=== PATIENT | female | born 1970 | race African-American/Black ===

== ENCOUNTER 2016-12-17 16:02 | Emergency (ER) | payer SELFPAY ==
[2016-12-17 16:44] LABS: ALT (SGPT) 18 U/L (0-55); AST (SGOT) 22 U/L (5-34); Alkaline Phosphatase 63 U/L (40-150); Anion Gap 16 mmol/L (10-20); BUN (Urea Nitrogen) 9 mg/dL (7.0-18.7); Bilirubin, Total 0.2 mg/dL (0.2-1.2); Calc. Creatinine Clearance 0 mL/min (70-130); Carbon Dioxide 19 mmol/L (22-29); Chloride 109 mmol/L (98-107); Estimated GFR-MDRD 89; Globulin 4.1 g/dL (2.4-3.5); Protein, Total 8.4 g/dL (6.0-8.3)
[2016-12-17 16:45] LABS: Troponin I Less than 0.010 ng/mL (< 0.028)
[2016-12-17 17:00] LABS: Band 2 % (5-11); Hematocrit 39.6 % (36.0-47.0); Mean Platelet Volume 6.1 fL (7.4-10.4); Neutrophil 25 % (42-75); White Blood Cell (WBC) Count 4.2 thou/uL (4.8-10.8)
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
--- NOTE | 2016-12-17 21:13 | RAD ---
PORTABLE CHEST: Date: 12-17-16 An AP portable film at 1622 is compared with a 03-21-16 study. FINDINGS: The heart remains normal in size and the lungs are clear. There is no sign of vascular congestion, edema, or pleural effusion. There is no evidence of pneumothorax, pneumonia, or other acute pulmona ry findings. The mediastinum appears normal. The bony structures appear normal. IMPRESSION: No acute thoracic findings. POS: HOME
== END 2016-12-17 17:19 | disposition home or self-care (01) ==
LOC: BURERS 16:02
DX: R07.89 Other chest pain (principal); I10 Essential (primary) hypertension; J42 Unspecified chronic bronchitis; F17.210 Nicotine dependence, cigarettes, uncomplicated
CPT/HCPCS: 36415; 71010; 80053; 82553; 84484; 85025; 93005

== ENCOUNTER → 2017-02-22 | Emergency (ER) | payer SELFPAY ==
[~2017-02-22] MED LIST: Bacitracin Zinc 1 Packet ONE
== END ==
LOC: BURERS 23:44
DX: S01.01XA Laceration without foreign body of scalp, initial encounter (principal); I10 Essential (primary) hypertension; F17.210 Nicotine dependence, cigarettes, uncomplicated; X58.XXXA Exposure to other specified factors, initial encounter
CPT/HCPCS: 12001

== ENCOUNTER 2018-02-09 23:27 | Emergency (ER) | payer SELFPAY ==
[2018-02-10] MEDS ORDERED: Adacel (T-DAP) 0.5 ML VIAL ONE ×2 (00:05→00:07)
[2018-02-10] MEDS ORDERED: Bacitracin Zinc 1 Packet ONE (00:07)
== END 2018-02-10 00:23 | disposition home or self-care (01) ==
LOC: BURERS 23:27
DX: S01.111A Laceration without foreign body of right eyelid and periocular area, initial encounter (principal); I10 Essential (primary) hypertension; F17.210 Nicotine dependence, cigarettes, uncomplicated; Y04.0XXA Assault by unarmed brawl or fight, initial encounter
CPT/HCPCS: 12052; 90471; 90715

== ENCOUNTER 2018-05-13 22:11 | Emergency (ER) | payer SELFPAY ==
[2018-05-13] MEDS ORDERED: Ondansetron ODT 4 MG TAB ONE (22:35)
[2018-05-13] MEDS ORDERED: AMOXicillin 250 MG CAP ONE (22:35)
== END 2018-05-13 22:56 | disposition home or self-care (01) ==
LOC: BURERS 22:11
DX: R06.00 Dyspnea, unspecified (principal); H60.91 Unspecified otitis externa, right ear; F17.210 Nicotine dependence, cigarettes, uncomplicated; B20 Human immunodeficiency virus [HIV] disease; J44.9 Chronic obstructive pulmonary disease, unspecified; I10 Essential (primary) hypertension
CPT/HCPCS: 94640; J7620; Q0162

== ENCOUNTER 2018-11-06 14:40 | Emergency (ER) | payer SELFPAY | END 2018-11-06 15:15 | LOC: BURERS 14:40 | DX: S51.011A Laceration without foreign body of right elbow, initial encounter (principal); I10 Essential (primary) hypertension; B20 Human immunodeficiency virus [HIV] disease; J44.9 Chronic obstructive pulmonary disease, unspecified; F41.9 Anxiety disorder, unspecified; F31.9 Bipolar disorder, unspecified; F17.210 Nicotine dependence, cigarettes, uncomplicated; W26.8XXA Contact with other sharp object(s), not elsewhere classified, initial encounter | CPT/HCPCS: 12001 ==

== ENCOUNTER 2018-11-26 15:44 | Emergency (ER) | payer SELFPAY | END 2018-11-26 16:17 | disposition home or self-care (01) | LOC: BURERS 15:44 | DX: S43.401A Unspecified sprain of right shoulder joint, initial encounter (principal); S50.01XA Contusion of right elbow, initial encounter; I10 Essential (primary) hypertension; F41.9 Anxiety disorder, unspecified; F31.9 Bipolar disorder, unspecified; F17.210 Nicotine dependence, cigarettes, uncomplicated; V49.9XXA Car occupant (driver) (passenger) injured in unspecified traffic accident, initial encounter | CPT/HCPCS: 99281 ==

== ENCOUNTER 2020-02-20 22:33 | Emergency (ER) | payer SELFPAY ==
[2020-02-20] MEDS ORDERED: Albuterol Sulfate 2.5 mg/0.5 ml Neb ONE (22:42)
[2020-02-20] MEDS ORDERED: methylPREDNISolone Sod Succ/PF 125 MG/2 ML VIAL ONE (22:47)
[2020-02-20] MEDS ORDERED: Albuterol Sulfate 1.25 MG/3 ML NEB ONE (23:00)
[2020-02-20 23:15] LABS: #Basophils 0.1 thou/uL (0.0-0.2); #Eosinphils 0.1 thou/uL (0.0-0.7); #Lymphocytes 2.8 thou/uL (1.20-3.40); #Monocytes 0.4 thou/uL (0.11-0.59); #Neutrophils 5.3 thou/uL (1.40-6.50); %Basophils 0.9 % (0.0-1.0); %Lymphocytes 32.2 % (21.0-51.0); %Monocytes 4.6 % (0.0-10.0); %Neutrophils 61.3 % (42.0-75.0); Hemoglobin 13.9 g/dL (12.0-16.0); Mean Corpuscular HGB CONC 31.8 g/dL (32.0-36.0); Mean Corpuscular Hemoglobin 32.5 pg (27.0-31.0); Mean Platelet Volume 6.9 fL (7.4-10.4); Platelet Count 250 thou/uL (130-400); RBC Distribution Width 13.1 % (11.5-14.5); Red Blood Cell (RBC) Count 4.29 mill/uL (4.20-5.40); White Blood Cell (WBC) Count 8.6 thou/uL (4.8-10.8)
[2020-02-20 23:26] LABS: ALT (SGPT) 56 U/L (8-55); AST (SGOT) 52 U/L (5-34); Albumin 5.1 g/dL (3.5-5.0); Alkaline Phosphatase 112 U/L (40-110); Anion Gap 17 mmol/L (10-20); BUN (Urea Nitrogen) 7 mg/dL (7.0-18.7); Bilirubin, Total 0.3 mg/dL (0.2-1.2); Calc. Creatinine Clearance 0 mL/min (70-130); Calcium 9.3 mg/dL (7.8-10.44); Carbon Dioxide 21 mmol/L (22-29); Chloride 99 mmol/L (98-107); Estimated GFR-MDRD Greater than 90; Globulin 4.5 g/dL (2.4-3.5); Glucose 153 mg/dL (70-105); Protein, Total 9.6 g/dL (6.0-8.3); Sodium 133 mmol/L (136-145)
--- NOTE | 2020-02-20 23:56 | RAD ---
PORTABLE CHEST: 02/20/20 An AP portable film at 2306 is compared with a 12/17/16 study. There has been no adverse interval change. The heart is normal in size and the lungs are clear. No in filtrate or effusion was seen. The mediastinum appears normal. IMPRESSION: No acute findings. POS: HOME
== END 2020-02-21 00:53 | disposition home or self-care (01) ==
LOC: BURERS 22:33
DX: J45.901 Unspecified asthma with (acute) exacerbation (principal); H10.31 Unspecified acute conjunctivitis, right eye; F41.9 Anxiety disorder, unspecified; F31.9 Bipolar disorder, unspecified; F17.210 Nicotine dependence, cigarettes, uncomplicated
CPT/HCPCS: 36415; 71045; 80053; 83605; 83880; 84484; 85025; 93005; 94760; 96361; 96374; 99406; J2930; J7611

== ENCOUNTER 2020-04-03 20:44 | Emergency (ER) | payer SELFPAY ==
[2020-04-03] MEDS ORDERED: predniSONE 20 MG TAB ONE (21:05)
== END 2020-04-03 21:23 | disposition home or self-care (01) ==
LOC: BURERS 20:44
DX: J45.901 Unspecified asthma with (acute) exacerbation (principal); I10 Essential (primary) hypertension; F31.9 Bipolar disorder, unspecified; F41.9 Anxiety disorder, unspecified; F17.210 Nicotine dependence, cigarettes, uncomplicated
CPT/HCPCS: 99284; J7512

== ENCOUNTER 2020-07-12 00:34 | Emergency (ER) | payer SELFPAY | END 2020-07-12 00:39 | disposition home or self-care (01) | LOC: BURERS 00:34 | DX: L72.9 Follicular cyst of the skin and subcutaneous tissue, unspecified (principal); E78.5 Hyperlipidemia, unspecified; I10 Essential (primary) hypertension; F31.9 Bipolar disorder, unspecified; F41.9 Anxiety disorder, unspecified; F17.210 Nicotine dependence, cigarettes, uncomplicated | CPT/HCPCS: 99281 ==

== ENCOUNTER 2022-06-26 16:08 | Emergency (ER) | payer OTHER, SELFPAY ==
[2022-06-26] MEDS ORDERED: Ketorolac Tromethamine 30 MG/ML VIAL ONE (16:29)
[2022-06-26 16:47] LABS: Bilirubin Small (Negative); Blood, Urine Trace (Negative); Clarity Cloudy (Clear); Glucose, Urine (Dipstick) Negative (Negative); Ketone, Urine 40 mg/dL (Negative); Leukocyte Moderate (Negative); Nitrite Negative (Negative); Protein, Urine (Dipstick) 100 mg/dL (Neg-Trace); Specific Gravity, Urine 1.025 (1.005-1.030)
[2022-06-26 16:50] LABS: #Monocytes 0.4 thou/uL (0.11-0.59); #Neutrophils 2.1 thou/uL (1.40-6.50); %Basophils 0.4 % (0.0-1.0); %Eosinophils 0.5 % (0.0-10.0); %Lymphocytes 28.6 % (21.0-51.0); %Monocytes 10.8 % (0.0-10.0); %Neutrophils 59.6 % (42.0-75.0); Hemoglobin 12.3 g/dL (12.0-16.0); Mean Corpuscular Hemoglobin 33.9 pg (27.0-31.0); Mean Platelet Volume 6.2 fL (7.4-10.4); Platelet Count 182 thou/uL (130-400); RBC Distribution Width 12.5 % (11.5-14.5); Red Blood Cell (RBC) Count 3.62 mill/uL (4.20-5.40); White Blood Cell (WBC) Count 3.5 thou/uL (4.8-10.8)
[2022-06-26 16:53] LABS: RBC/HPF 0-3 HPF (0-3)
[2022-06-26 16:54] LABS: Bacteria/HPF 2+ HPF (None Seen); Mucous/LPF 4+ LPF (<2+)
[2022-06-26 17:02] LABS: ALT (SGPT) 78 U/L (8-55); AST (SGOT) 189 U/L (5-34); Albumin 4.4 g/dL (3.5-5.0); Alkaline Phosphatase 148 U/L (40-110); Anion Gap 17 mmol/L (10-20); BUN (Urea Nitrogen) 10 mg/dL (7.0-18.7); Bilirubin, Total 0.8 mg/dL (0.2-1.2); CK (CPK) 174 U/L (29-168); Calc. Creatinine Clearance 0 mL/min (70-130); Calcium 9.2 mg/dL (7.8-10.44); Carbon Dioxide 26 mmol/L (22-29); Chloride 99 mmol/L (98-107); Estimated GFR 87; Globulin 4.3 g/dL (2.4-3.5); Glucose 90 mg/dL (70-105); Protein, Total 8.7 g/dL (6.0-8.3); Sodium 139 mmol/L (136-145)
[2022-06-26] MEDS ORDERED: cefTRIAXone\\ROCEPHIN 1 GM VIAL ONE (17:41)
[2022-06-26] MEDS ORDERED: Thiamine HCl 200 MG/2 ML VIAL ONE (17:41)
[2022-06-26] MEDS ORDERED: Potassium Chloride 20 MEQ TAB ONE (17:41)
[2022-06-26] MEDS ORDERED: Sodium Chloride 0.9% 100 ML ONE (17:42)
== END 2022-06-26 18:10 | disposition home or self-care (01) ==
LOC: BURERS 16:08
DX: T67.2XXA Heat cramp, initial encounter (principal); N39.0 Urinary tract infection, site not specified; E87.6 Hypokalemia; E78.5 Hyperlipidemia, unspecified; E78.00 Pure hypercholesterolemia, unspecified; I10 Essential (primary) hypertension; J44.9 Chronic obstructive pulmonary disease, unspecified; Z79.899 Other long term (current) drug therapy
CPT/HCPCS: 36415; 80053; 81003; 81015; 82550; 85025; 87086; 96361; 96374; 96375; J0696; J1885; J3411; J3490

== ENCOUNTER 2023-11-28 11:06 | Emergency (ER) | payer OTHER | END 2023-11-28 12:34 | disposition home or self-care (01) | LOC: BURERS 11:06 | DX: S01.81XD Laceration without foreign body of other part of head, subsequent encounter (principal); E78.00 Pure hypercholesterolemia, unspecified; I10 Essential (primary) hypertension; J44.9 Chronic obstructive pulmonary disease, unspecified; F17.210 Nicotine dependence, cigarettes, uncomplicated; X58.XXXD Exposure to other specified factors, subsequent encounter ==